=== PATIENT | male | born 1965 | race American Indian/Alaskan Native ===

== ENCOUNTER 2018-12-06 10:20 | Day surgery (SDC) | payer OTHER ==
[~2018-12-06 10:20] MED LIST: NACL 0.9% 1000 ML 1,000 ML IV SCH
[2018-12-06] MEDS ORDERED: XYLOCAINE MPF 2% ONE (11:30)
[2018-12-06] MEDS ORDERED: WATER FOR IRRIG STERILE IR ONE (11:33)
[2018-12-06] MEDS ORDERED: DIPRIVAN 10 MG/ML IV ONE ×2 (11:39)
[2018-12-06] MEDS ORDERED: VERSED ONE (11:39)
[2018-12-06] MEDS ORDERED: SUBLIMAZE ONE (11:39)
--- NOTE | 2018-12-06 12:20 | Procedure Note ---
Date of procedure: 12/06/18 Pre-op diagnosis: GERD/ Colon Polyp Screening/Occasional Diarrhea/ F/H? GI Cancer Post-op diagnosis: other (Mild to Moderate Distal Erosive Esophagitis/Gastritis/Solitary,Small (possibly hyperplastic) Polyp.R/O Ileitis/R/O Microscopic Colitis) Procedure: EGD with Biopsy and Colonoscopy with Biopsy Anesthesia: JENNIFER Surgeon: LORIE ALVARADO Estimated blood loss: minimal Pathology: list Specimen disposition: to lab Condition: stable Disposition: same day (Treat with PPI, ecourage Probiotic (OTC) use as directed and Imodium AD prn for diarrhea. Avoid aspirin and NSAID for 5 days ; resume home medication and follow up in 1 to 2 weeks ([phone]).)
--- NOTE | 2018-12-06 12:37 | Operative Report ---
PROCEDURE: Esophagogastroduodenoscopy with biopsy. INDICATIONS: This is a 53-year-old -[place] gentleman with an underlying history of hypertension. He does have a family history of cancer. One of his cousins had gastric cancer. EGD was done because of GERD symptoms. DESCRIPTION OF PROCEDURE: The procedure was done after getting informed consent with MAC anesthesia. Instrument was passed through the hypopharynx into the esophagus, which showed mild to moderate distal erosive esophagitis. Stomach showed gastritis. The pylorus was patent. The duodenum in the first and second portion appeared normal. Biopsy was done from the gastric antrum and the gastric body to rule out for H. pylori and atrophic gastritis. Additional biopsy was done from the distal esophagus to assess for the severity of the esophagitis. There was minimal bleeding from the biopsy sites. No complications associated with the procedure. ASSESSMENT: Gastroesophageal reflux disease symptoms, mild to moderate distal erosive esophagitis, gastritis. No peptic ulcer disease noted. Plan is to treat the patient with PPI, have the patient avoid aspirin and aspirin-related products for the next few days. A colonoscopy will be done as part of colon polyp screening and also to assess for the occasional history of diarrhea that the patient has. Procedure was done in the GI lab in the presence and assistance of the GI lab team, which included MUNIRA Wigigns and tomasz Andres as well as the assistance of anesthesia. The patient will be treated with PPI. Colonoscopy will be done for further assessment. JOB# [id number] SAMIR/ROIBN
--- NOTE | 2018-12-06 12:42 | Operative Report ---
PROCEDURE: Colonoscopy with biopsy. INDICATIONS: This is a 53-year-old -[place] gentleman with underlying history of hypertension, family history of GI cancer. The patient's cousin had GI cancer. Colonoscopy was done to make sure there were not any colon polyps and also because the patient on occasion complains of diarrhea. EGD had shown mild to moderate distal erosive esophagitis and some gastritis. DESCRIPTION OF PROCEDURE: Colonoscopy was done after getting informed consent with MAC anesthesia. Initial rectal exam was unremarkable. Instrument was passed through the rectum onto the cecum, which was identified by the ileocecal valve and the appendiceal orifice. The terminal ileum showed normal mucosa. Biopsy was done to rule out for possible ileitis. Cecum, ascending colon, transverse colon, descending colon, and sigmoid likewise showed normal mucosa. Random biopsies were done to rule out for possible microscopic colitis. There was no evidence of any diverticular disease noted and the rectum showed a small solitary polyp, possibly hyperplastic polyp that was removed by cold biopsy and minor internal hemorrhoid on the retroverted view. There was minimal bleeding from the biopsy sites and no complications associated with the procedure. ASSESSMENT: Colon polyp screening solitary rectal polyp, rule out ileitis, rule out microscopic colitis. Minor internal hemorrhoid. The procedure was done in the GI lab with assistance of the GI lab team, which included RN Madyson Wiggins and nurse Andres and also the assistance of anesthesia. The patient will be asked to take some probiotics, Imodium A-D as needed for the diarrhea. Avoid aspirin and aspirin-related products for the next few days, will be treated with PPI because of the upper GI findings of esophagitis, gastritis, was advised to follow up in the office in 1-2 weeks' time and to avoid aspirin and aspirin-related products for the next 5 days. JOB# [id number] SAMIR/ROBIN
[2018-12-06 14:30] VITALS: BP 109/84
== END 2018-12-06 10:21 | disposition home or self-care (01) ==
LOC: GIO 10:20
DX: K21.0 Gastro-esophageal reflux disease with esophagitis (principal); K62.1 Rectal polyp; K52.89 Other specified noninfective gastroenteritis and colitis; K64.8 Other hemorrhoids; I10 Essential (primary) hypertension; E78.5 Hyperlipidemia, unspecified; K29.70 Gastritis, unspecified, without bleeding; F17.210 Nicotine dependence, cigarettes, uncomplicated; E78.00 Pure hypercholesterolemia, unspecified; G47.30 Sleep apnea, unspecified; Z80.0 Family history of malignant neoplasm of digestive organs; Z79.899 Other long term (current) drug therapy; Z87.442 Personal history of urinary calculi; Z98.890 Other specified postprocedural states
CPT/HCPCS: 43239; 45380; 88305; 88342; J2250; J2704; J3010